=== PATIENT | male | born 1965 | race Two or more races ===

== ENCOUNTER 2022-01-20 13:27 | Emergency (ER) | payer OTHER ==
[~2022-01-20] VITALS: Ht 167.6 cm; Wt 99.3 kg
[~2022-01-20 13:27] MED LIST: CEFADROXIL500 MG PO; COZAAR25 MG PO; KETO10TA2 PO; SYNTHROID50 MCG PO
== END 2022-01-20 19:32 | disposition home or self-care (01) ==
LOC: ER 13:27
DX: R50.9 Fever, unspecified (principal); Z20.822 Contact with and (suspected) exposure to COVID-19

== ENCOUNTER 2022-01-21 14:32 | Emergency (ER) | payer OTHER ==
[~2022-01-21] VITALS: Ht 170.2 cm; Wt 97.5 kg
== END 2022-01-21 19:38 | disposition home or self-care (01) ==
LOC: ER 14:32
DX: T78.49XA Other allergy, initial encounter (principal); T50.905A Adverse effect of unspecified drugs, medicaments and biological substances, initial encounter; Y92.89 Other specified places as the place of occurrence of the external cause; X58.XXXA Exposure to other specified factors, initial encounter; Z91.013 Allergy to seafood